=== PATIENT | female | born 1995 | race Two or more races ===

== ENCOUNTER 2023-04-20 12:43 | Emergency (ER) | payer OTHER, SELFPAY ==
--- NOTE | ~2023-04-20 | XR_ITS ---
EXAMINATION: XR CHEST 2 VIEW CLINICAL INFORMATION: Cough, congestion COMPARISON: None TECHNIQUE: PA and lateral views of the chest obtained. FINDINGS: The lungs are clear. There are no pleural effusions. The cardiomediastinal silhouette is normal. XR/XR chest 2V IMPRESSION: No acute cardiopulmonary disease.
[2023-04-20 12:56] VITALS: BP 140/74; PULSE 122; RESP 18; TEMP 36.6; O2SAT 96; BMI 43.1
--- NOTE | 2023-04-20 12:56 | ED.GENADULT ---
HPI - General Adult General Chief complaint: Upper Respiratory Symptoms Stated complaint: cough getting worse Time Seen by Provider: 04/20/23 15:03 Source: patient, RN notes reviewed and old records reviewed Mode of arrival: ambulatory History of Present Illness HPI narrative: 27-year-old female with a past medical history of Graves disease, asthma noncompliant on medication, presenting to the ED complaining of dry cough, nasal congestion, rhinorrhea, sore throat, right ear pain, and SOB x1 week. Patient admits went to urgent care last week was told she had viral URI and was given antibiotics for an ear infection however was unable to tolerate them admits to only taking 2 doses and self stopping due to nausea and vomiting. Denies fever, drainage from ear, hearing loss, difficulty or inability to swallow, chest pain Related Data Previous Rx's Medication Instructions Recorded benzonatate 100 mg capsule 100 mg PO TID PRN cough #14 caps 04/20/23 cefdinir 300 mg capsule 300 mg PO BID 7 days #14 caps 04/20/23 prednisone 20 mg tablet 40 mg (2 x 20 mg) PO DAILY 5 days 04/20/23 #10 tabs Allergies Allergy/AdvReac Type Severity Reaction Status Date / Time No Known Allergies Allergy Verified 04/20/23 12:55 Review of Systems Review of Systems: Constitutional: No Fever, No Chills ENT/Mouth: +Ear Pain, + Nasal Congestion, No Sinus Pain, No Hoarseness, + sore throat, + Rhinorrhea, No Swallowing Difficulty Cardiovascular: No Chest Pain, + SOB Respiratory: + Cough, No Sputum, No Wheezing Gastrointestinal: No Nausea, No Vomiting, No Abdominal pain Musculoskeletal: No joint pain, No Myalgias, No Joint Swelling Skin: No Skin Lesions, No rash Neuro: No Weakness Yes all other systems are reviewed and are negative Constitutional: Constitutional: Reports as per [facility] Past Medical History Attestation statement: The following information was validated with the patient. Source: old records reviewed Social History Advance Directives: No Advance Directives Information Provided: Yes Physical Exam ED Vital Signs: Vital Signs - 24 hr 04/20/23 12:56 04/20/23 16:36 Temperature 98 F Pulse Rate 122 H 108 H Respiratory Rate 18 Blood Pressure 140/74 H 146/83 H Pulse Oximetry 96 100 Oxygen Delivery Method Room Air Room Air BMI result Body Mass Index 43.1 Const General: cooperative, healthy appearing and no acute distress Orientation/consciousness: patient oriented x3 Limitations: no limitations HENMT Head: Yes normal to inspection and Yes atraumatic Ears: hearing grossly normal bilaterally, external ears normal and TM abnormal bulging on the right, dull on the right and erythematous on the right General nose exam: Normal external nose present Face and sinus: Yes normal facial exam Mouth: Normal oral and palatal mucosa present Throat: Yes posterior oropharynx normal, Yes tonsils normal, Yes uvula midline, No uvula laterally displaced and No uvular edema Eyes General: appearance normal, both eyes and all related structures EOM: EOMs intact bilaterally Neck Neck: Yes normal visual inspection and Yes no meningeal signs Resp Effort & Inspection: normal respiratory effort, no respiratory distress and not tachypneic Auscultation: clear to auscultation bilaterally, no crackles and no wheezes Cardio Rate: regular rate Heart sounds: S1 normal heart sound present and S2 normal heart sound present GI Inspection: Yes normal to inspection Palpation (GI): Soft to palpation, nontender, no guarding and not rigid Skin Rashes: no rashes Wounds: no wounds Neuro General: patient oriented x3, tone normal and no meningeal signs Cranial nerves: Yes CN's II-XII intact bilaterally Gait exam (Neuro): Normal gait present Extrem General: Yes normal to inspection, Yes no pedal edema and Yes no calf tenderness Course Course Course Narrative: This is an RME: Additional HPI, ROS, PE not included below will be deferred to primary provider. This is a 89-imfe-dpe-female, hx of graves disease, presenting to the emergency department with complaints of cough, congestion and SOB x 1 week. Went to and was told she had a viral URI. Reporting her symptoms are not improving. No fevers, endorsing chills. Was placed on prednisone x 1 month due to heart rate . Started on amoxicillin for 2 days was not Plan: Medical Decision Making Medical Decision Making [facility] Narrative: 27-year-old female with a past medical history of Graves disease, asthma noncompliant on medication, presenting to the ED complaining of dry cough, nasal congestion, rhinorrhea, sore throat, right ear pain, and SOB x1 week. On exam tachycardic likely from coughing, NAD, nontoxic appearing, physical exam as noted above with concern of otitis media to the right ear, lungs CTA, or pharynx WNL. No mastoid tenderness. Concern for viral illness/bronchitis. Low suspicion for retropharyngeal abscess/SEATING UPHOLSTERER, mastoiditis, otitis externa. Rule out pneumonia. Unlikely ACS/PE Plan: CXR, COVID/flu/RSV testing, rapid strep Please refer to course for remaining clinical decision making, interpretation of labs/imaging results, and discussions with consultants and/or family members. Differential Diagnosis Differential Diagnoses: The differential diagnosis associated with the presentation includes As above Lab Data MDM Lab Attestation statement: I reviewed the patient's lab results. Labs: Lab Results 04/20/23 Range/Units 14:56 Influenza Type A (PCR) NEGATIVE (Negative) Influenza Type B (PCR) NEGATIVE (Negative) RSV RNA Qual (PCR) NEGATIVE (Negative) SARS-CoV-2 RNA (RT-PCR) NEGATIVE (Negative) S. pyogenes GrpA MINH Negative (Negative) Independent Interpretation I performed an independent interpretation of an: Plain X-Ray Radiology Impression Discussion of test interpretation with radiology: I have reviewed the radiologist's reading. External Record Review External record reviewed: Inpatient record, Office record, Outpatient record, Prior outpatient labs, Prior outpatient radiology, Primary care record and Outside ED record Tests considered The following testing was considered but not selected: As above Prescription Management I considered prescription management with: Pain Medication Chronic Conditions Patient?s care impacted by: Other (asthma) Discharge Plan Discharge Clinical Impression: Bronchitis, Otitis media Patient Disposition: Home, Self-Care Instructions: Ear Infection (ED), Acute Bronchitis (ED) Additional Instructions: Please continue to take previously prescribed nasal sprays Tessalon Perles are for cough Prednisone as a steroid which will help with cough Cefdinir is an antibiotic to help with her ear infection Please use inhalers at home Follow up with her doctor Is symptoms persist or worsen return to the ED Prescriptions: New cefdinir 300 mg capsule 300 mg PO BID 7 Days Qty: 14 0RF prednisone 20 mg tablet 40 mg PO DAILY 5 Days Qty: 10 0RF benzonatate 100 mg capsule 100 mg PO TID PRN (Reason: cough) Qty: 14 0RF Referrals: Physician,Unknown J [Primary Care Provider] - Stand Alone Forms: Work/School Release Interventions: ED Discharge Assessment Last Done: 04/20/23 18:16 Discharge Date/Time: 04/20/23 18:16
[2023-04-20 15:28] LABS: IDNOW Serial# 58CA691E; Strep A Nucleic Acid Negative (Negative)
[2023-04-20 15:58] LABS: Influenza A PCR NEGATIVE (Negative); Influenza B PCR NEGATIVE (Negative); Resp Syncy Virus RNA Qual PCR NEGATIVE (Negative); SARS COV2 PCR INHOUSE NEGATIVE (Negative)
[2023-04-20 16:36] VITALS: BP 146/83; PULSE 108; O2SAT 100
== END 2023-04-20 18:16 | disposition home or self-care (01) ==
PROVIDERS: Physician Assistant Medical; Emergency Provider Emergency Medicine Emergency Medical Services
DX: J40 Bronchitis, not specified as acute or chronic (principal); H66.91 Otitis media, unspecified, right ear; R05.9 Cough, unspecified; Z91.148 Patient's other noncompliance with medication regimen for other reason; Z20.822 Contact with and (suspected) exposure to COVID-19; Z20.828 Contact with and (suspected) exposure to other viral communicable diseases
CPT/HCPCS: 0241U; 71046; 87651; 99282; 99283